=== PATIENT | female | born 1985 | race Caucasian/White ===

== ENCOUNTER 2017-05-16 22:53 | Emergency (ER) | payer BC ==
[~2017-05-16] VITALS: Ht 160 cm; Wt 86.4 kg
[~2017-05-16 22:53] MED LIST: MIRENA52 MG
[2017-05-16] MEDS ORDERED: NEXIUM20 MG PO (23:04)
[2017-05-16 23:36] VITALS: BP 102/77
== END 2017-05-16 23:36 | disposition home or self-care (01) ==
LOC: ED 22:53
DX: T16.2XXA Foreign body in left ear, initial encounter (principal); F17.200 Nicotine dependence, unspecified, uncomplicated; Z88.5 Allergy status to narcotic agent

== ENCOUNTER → 2019-08-15 | Outpatient (CLI) | payer OTHER ==
[~2019-08-15] MED LIST changes: +NEXIUM20 MG PO
== END ==
LOC: LAB 15:01
DX: R11.0 Nausea (principal); R05 Cough; R50.9 Fever, unspecified; Z20.828 Contact with and (suspected) exposure to other viral communicable diseases

== ENCOUNTER 2020-05-04 18:33 | Emergency (ER) | payer SELFPAY ==
[~2020-05-04 18:33] MED LIST changes: +HYDROCHLOROTHIA1 T14 PO; +NEURONTIN100 M1 PO; +VITAMIN D21250 MCG PO
[2020-05-04 19:34] LABS: HEMATOCRIT 43.8 % (37.0-47.0); HEMOGLOBIN 14.3 g/dL (12.5-16.0); MEAN CELL VOLUME 100 fl (78-100); MEAN CORPUSCULAR HEMOGLOBIN 33 pg (27-31); MEAN CORPUSCULAR HGB CONC 33 g/dL (33-37); MEAN PLATELET VOLUME 10.2 fl (7.4-10.4); PLATELET COUNT 215 K/mm3 (130-400); RED BLOOD COUNT 4.39 M/mm3 (4.10-5.30); RED CELL DISTRIBUTION WIDTH 14.3 % (11.5-14.5); WHITE BLOOD COUNT 8.6 K/mm3 (4.8-10.8)
[2020-05-04 19:35] LABS: BASO # 0.1 (0.02-0.10); LYMPH# 2.5 (1.50-4.00); MONO # 0.8 (0.20-0.80); NEU # 5.2 (1.40-6.50)
[2020-05-04 19:49] LABS: POTASSIUM 4.2 mmol/L (3.5-5.1)
[2020-05-04 19:50] LABS: CALCIUM 8.6 mg/dL (8.3-10.5)
[2020-05-04 19:53] LABS: TOTAL BILIRUBIN 0.6 mg/dL (0.2-1.2)
[2020-05-04 20:21] LABS: URINE APPEARANCE CLEAR; URINE BILIRUBIN NEGATIVE (NEGATIVE); URINE BLOOD TRACE (NEGATIVE); URINE COLOR YELLOW; URINE GLUCOSE NEGATIVE (NEGATIVE); URINE KETONE NEGATIVE (NEGATIVE); URINE LEUKOCYTE ESTERASE NEGATIVE (NEGATIVE); URINE NITRATE NEGATIVE (NEGATIVE); URINE PROTEIN(semi-quant) TRACE mg/dL (NEGATIVE); URINE UROBILINOGEN NORMAL (NORMAL); URINE WBC 0-1 /hpf (0-3)
[2020-05-04 21:27] VITALS: BP 103/70
== END 2020-05-04 21:27 | disposition home or self-care (01) ==
LOC: ED 18:33
PROVIDERS: Nurse Practitioner
DX: K59.00 Constipation, unspecified (principal); K21.9 Gastro-esophageal reflux disease without esophagitis; Z32.02 Encounter for pregnancy test, result negative; Z88.6 Allergy status to analgesic agent

== ENCOUNTER 2020-05-08 13:49 | Emergency (ER) | payer SELFPAY ==
[2020-05-08 14:26] LABS: HEMATOCRIT 44.6 % (37.0-47.0); HEMOGLOBIN 14.9 g/dL (12.5-16.0); MEAN CELL VOLUME 99 fl (78-100); MEAN CORPUSCULAR HEMOGLOBIN 33 pg (27-31); MEAN CORPUSCULAR HGB CONC 33 g/dL (33-37); MEAN PLATELET VOLUME 10.1 fl (7.4-10.4); PLATELET COUNT 215 K/mm3 (130-400); RED BLOOD COUNT 4.52 M/mm3 (4.10-5.30); RED CELL DISTRIBUTION WIDTH 14.6 % (11.5-14.5)
[2020-05-08 14:34] LABS: ALBUMIN 4.4 g/dL (3.5-5.0)
[2020-05-08 14:35] LABS: POTASSIUM 3.9 mmol/L (3.5-5.1)
[2020-05-08 14:36] LABS: CALCIUM 8.7 mg/dL (8.3-10.5)
[2020-05-08 14:37] LABS: TOTAL PROTEIN 7.4 g/dL (6.4-8.3)
[2020-05-08 14:39] LABS: TOTAL BILIRUBIN 0.8 mg/dL (0.2-1.2)
[2020-05-08 15:07] LABS: URINE APPEARANCE HAZY; URINE BILIRUBIN NEGATIVE (NEGATIVE); URINE BLOOD TRACE (NEGATIVE); URINE COLOR YELLOW; URINE GLUCOSE NEGATIVE (NEGATIVE); URINE KETONE 1+ (NEGATIVE); URINE LEUKOCYTE ESTERASE TRACE (NEGATIVE); URINE NITRATE NEGATIVE (NEGATIVE); URINE PROTEIN(semi-quant) TRACE mg/dL (NEGATIVE); URINE UROBILINOGEN NORMAL (NORMAL); URINE WBC 0-1 /hpf (0-3)
[2020-05-08 15:08] LABS: LYMPHOCYTE 22 % (20-51); MONOCYTE 13 % (3-10); NEUTROPHILS 65 % (42-75)
[2020-05-08] MEDS ORDERED: ZOFRAN4 M2 PO (16:57)
[2020-05-08 17:11] VITALS: BP 126/72
== END 2020-05-08 17:11 | disposition home or self-care (01) ==
LOC: ED 13:49
PROVIDERS: Nurse Practitioner
DX: K80.20 Calculus of gallbladder without cholecystitis without obstruction (principal); K76.0 Fatty (change of) liver, not elsewhere classified; F17.210 Nicotine dependence, cigarettes, uncomplicated; Z88.6 Allergy status to analgesic agent
CPT/HCPCS: J2405; J7030; Q9967

== ENCOUNTER 2020-05-11 11:18 | Emergency (ER) | payer SELFPAY ==
[~2020-05-11 11:18] MED LIST changes: +ZOFRAN4 M2 PO
[2020-05-11 12:08] LABS: EOS # 0.1 (0.04-0.40); EOS % 1.8 % (1.0-5.0); HEMATOCRIT 43.6 % (37.0-47.0); HEMOGLOBIN 14.2 g/dL (12.5-16.0); LYMPH# 2.3 (1.50-4.00); MEAN CELL VOLUME 102 fl (78-100); MEAN CORPUSCULAR HEMOGLOBIN 33 pg (27-31); MEAN CORPUSCULAR HGB CONC 33 g/dL (33-37); MEAN PLATELET VOLUME 10.3 fl (7.4-10.4); MONO # 0.5 (0.20-0.80); NEU # 2.6 (1.40-6.50); PLATELET COUNT 163 K/mm3 (130-400); RED BLOOD COUNT 4.27 M/mm3 (4.10-5.30); RED CELL DISTRIBUTION WIDTH 14.9 % (11.5-14.5); WHITE BLOOD COUNT 5.5 K/mm3 (4.8-10.8)
[2020-05-11 12:21] LABS: POTASSIUM 4.2 mmol/L (3.5-5.1)
[2020-05-11 12:22] LABS: CALCIUM 8.4 mg/dL (8.3-10.5)
[2020-05-11 12:23] LABS: TOTAL PROTEIN 6.8 g/dL (6.4-8.3)
[2020-05-11 12:25] LABS: TOTAL BILIRUBIN 0.5 mg/dL (0.2-1.2)
[2020-05-11] MEDS ORDERED: KETOROLAC10 MG PO (13:48)
[2020-05-11 14:00] VITALS: BP 108/69
== END 2020-05-11 14:00 | disposition home or self-care (01) ==
LOC: ED 11:18
PROVIDERS: Nurse Practitioner
DX: K80.20 Calculus of gallbladder without cholecystitis without obstruction (principal); R79.82 Elevated C-reactive protein (CRP); F17.210 Nicotine dependence, cigarettes, uncomplicated; Z88.6 Allergy status to analgesic agent
CPT/HCPCS: J1885

== ENCOUNTER → 2020-06-01 | Outpatient (CLI) | payer SELFPAY ==
[2020-05-11 14:00] VITALS: BP 108/69
[~2020-06-01] MED LIST changes: +AZITHROMYCIN 250MGPK PO; +DAILY VALUE1 EACH PO; +KETOROLAC10 MG PO; +MAGNESIUM100 M1; +MELOXICAM7.5 MG PO; +PREDNISONE20 M1 PO; +VITAMIN B122500 MC1
[2020-06-01 12:13] LABS: HEMATOCRIT 41.2 % (37.0-47.0); HEMOGLOBIN 13.6 g/dL (12.5-16.0); MEAN PLATELET VOLUME 10.1 fl (7.4-10.4); RED BLOOD COUNT 4.04 M/mm3 (4.10-5.30); RED CELL DISTRIBUTION WIDTH 15.4 % (11.5-14.5); WHITE BLOOD COUNT 6.4 K/mm3 (4.8-10.8)
[2020-06-01 12:16] LABS: POTASSIUM 4.3 mmol/L (3.5-5.1)
[2020-06-01 12:17] LABS: CALCIUM 8.5 mg/dL (8.3-10.5)
[2020-06-01 12:18] LABS: TOTAL PROTEIN 6.7 g/dL (6.4-8.3)
[2020-06-01 12:20] LABS: TOTAL BILIRUBIN 0.5 mg/dL (0.2-1.2)
== END ==
LOC: LAB 11:40
DX: R10.11 Right upper quadrant pain (principal); Z90.49 Acquired absence of other specified parts of digestive tract

== ENCOUNTER 2020-06-12 18:14 | Emergency (ER) | payer SELFPAY ==
[~2020-06-12 18:14] MED LIST changes: -AZITHROMYCIN 250MGPK PO; -DAILY VALUE1 EACH PO; -MAGNESIUM100 M1; -MELOXICAM7.5 MG PO; -PREDNISONE20 M1 PO; -VITAMIN B122500 MC1
[2020-06-12 19:05] LABS: EOS % 0.4 % (1.0-5.0); HEMATOCRIT 46.3 % (37.0-47.0); HEMOGLOBIN 15.4 g/dL (12.5-16.0); LYMPH# 1.8 (1.50-4.00); MEAN CELL VOLUME 102 fl (78-100); MEAN CORPUSCULAR HEMOGLOBIN 34 pg (27-31); MEAN CORPUSCULAR HGB CONC 33 g/dL (33-37); MEAN PLATELET VOLUME 10.5 fl (7.4-10.4); MONO # 0.5 (0.20-0.80); PLATELET COUNT 114 K/mm3 (130-400); RED BLOOD COUNT 4.56 M/mm3 (4.10-5.30); RED CELL DISTRIBUTION WIDTH 15.1 % (11.5-14.5); WHITE BLOOD COUNT 5.4 K/mm3 (4.8-10.8)
[2020-06-12 19:13] LABS: ALBUMIN 4.4 g/dL (3.5-5.0); POTASSIUM 4.1 mmol/L (3.5-5.1)
[2020-06-12 19:14] LABS: CALCIUM 8.8 mg/dL (8.3-10.5)
[2020-06-12 19:16] LABS: TOTAL PROTEIN 7.8 g/dL (6.4-8.3)
[2020-06-12 19:17] LABS: TOTAL BILIRUBIN 0.8 mg/dL (0.2-1.2)
[2020-06-12 19:52] LABS: PH-URINE 5.5 (5.0 - 8.0); URINE APPEARANCE HAZY; URINE BILIRUBIN NEGATIVE (NEGATIVE); URINE COLOR YELLOW; URINE GLUCOSE NEGATIVE (NEGATIVE); URINE KETONE TR (NEGATIVE); URINE PROTEIN(semi-quant) 2+ mg/dL (NEGATIVE)
[2020-06-12 19:53] LABS: URINE BLOOD 50 ery/uL (NEGATIVE); URINE LEUKOCYTE ESTERASE TRACE (NEGATIVE); URINE NITRATE NEGATIVE (NEGATIVE); URINE UROBILINOGEN 1 mg/dL (NORMAL)
[2020-06-12 20:42] LABS: LIPASE 133 U/L (8-78)
[2020-06-12 21:55] VITALS: BP 132/79
== END 2020-06-12 21:55 | disposition home or self-care (01) ==
LOC: ED 18:14
PROVIDERS: Family Medicine
DX: K29.20 Alcoholic gastritis without bleeding (principal); K76.0 Fatty (change of) liver, not elsewhere classified; Z90.49 Acquired absence of other specified parts of digestive tract

== ENCOUNTER → 2020-06-16 | Outpatient (CLI) | payer SELFPAY ==
[2020-06-12 21:55] VITALS: BP 132/79
[~2020-06-16] MED LIST changes: +AZITHROMYCIN 250MGPK PO; +DAILY VALUE1 EACH PO; +MAGNESIUM100 M1; +MELOXICAM7.5 MG PO; +PREDNISONE20 M1 PO; +VITAMIN B122500 MC1
== END ==
LOC: RAD 08:34
DX: K76.0 Fatty (change of) liver, not elsewhere classified (principal); N83.202 Unspecified ovarian cyst, left side; Z90.49 Acquired absence of other specified parts of digestive tract; Z96.89 Presence of other specified functional implants; Z97.5 Presence of (intrauterine) contraceptive device
CPT/HCPCS: Q9967

== ENCOUNTER → 2020-07-02 | Outpatient (CLI) | payer SELFPAY ==
[2020-06-12 21:55] VITALS: BP 132/79
[2020-07-02 13:26] LABS: HEMATOCRIT 45.3 % (37.0-47.0); HEMOGLOBIN 15.3 g/dL (12.5-16.0); MEAN PLATELET VOLUME 10.8 fl (7.4-10.4); RED BLOOD COUNT 4.5 M/mm3 (4.10-5.30); RED CELL DISTRIBUTION WIDTH 14.2 % (11.5-14.5); WHITE BLOOD COUNT 6.7 K/mm3 (4.8-10.8)
[2020-07-02 13:34] LABS: ALBUMIN 4.2 g/dL (3.5-5.0); POTASSIUM 3.7 mmol/L (3.5-5.1)
[2020-07-02 13:35] LABS: CALCIUM 8.6 mg/dL (8.3-10.5)
[2020-07-02 13:36] LABS: TOTAL PROTEIN 7.3 g/dL (6.4-8.3)
[2020-07-02 13:38] LABS: TOTAL BILIRUBIN 0.9 mg/dL (0.2-1.2)
== END ==
LOC: LAB 13:02
PROVIDERS: Nurse Practitioner
DX: R10.11 Right upper quadrant pain (principal); Z90.49 Acquired absence of other specified parts of digestive tract

== ENCOUNTER → 2020-07-10 | Outpatient (CLI) | payer SELFPAY ==
[2020-06-12 21:55] VITALS: BP 132/79
== END ==
LOC: RAD 16:06
DX: N83.02 Follicular cyst of left ovary (principal); M51.26 Other intervertebral disc displacement, lumbar region; R74.8 Abnormal levels of other serum enzymes; R79.82 Elevated C-reactive protein (CRP); Z90.49 Acquired absence of other specified parts of digestive tract; Z97.5 Presence of (intrauterine) contraceptive device
CPT/HCPCS: Q9967

== ENCOUNTER 2020-09-07 15:41 | Emergency (ER) | payer SELFPAY ==
[~2020-09-07 15:41] MED LIST changes: -AZITHROMYCIN 250MGPK PO; -DAILY VALUE1 EACH PO; -MAGNESIUM100 M1; -MELOXICAM7.5 MG PO; -PREDNISONE20 M1 PO; -VITAMIN B122500 MC1
[2020-09-07] MEDS ORDERED: MELOXICAM7.5 MG PO (15:54)
[2020-09-07] MEDS ORDERED: NEXIUM20 MG PO (15:55)
[2020-09-07] MEDS ORDERED: DAILY VALUE1 EACH PO (15:55)
[2020-09-07] MEDS ORDERED: VITAMIN B122500 MC1 (15:55)
[2020-09-07] MEDS ORDERED: MAGNESIUM100 M1 (15:56)
[2020-09-07 17:22] LABS: BASO # 0.06 (0.02-0.10); EOS # 0.05 (0.04-0.40); EOS % 0.9 % (1.0-5.0); HEMATOCRIT 43.9 % (37.0-47.0); HEMOGLOBIN 14.7 g/dL (12.5-16.0); LYMPH# 3.19 (1.50-4.00); MEAN CELL VOLUME 102 fl (78-100); MEAN CORPUSCULAR HEMOGLOBIN 34 pg (27-31); MEAN CORPUSCULAR HGB CONC 34 g/dL (33-37); MEAN PLATELET VOLUME 9.4 fl (7.4-10.4); MONO # 0.46 (0.20-0.80); NEU # 1.61 (1.40-6.50); PLATELET COUNT 297 K/mm3 (130-400); RED BLOOD COUNT 4.32 M/mm3 (4.10-5.30); RED CELL DISTRIBUTION WIDTH 12.7 % (11.5-14.5); WHITE BLOOD COUNT 5.4 K/mm3 (4.8-10.8)
[2020-09-07 17:34] LABS: ALBUMIN 3.7 g/dL (3.5-5.0)
[2020-09-07 17:35] LABS: POTASSIUM 3.6 mmol/L (3.5-5.1)
[2020-09-07 17:36] LABS: CALCIUM 8.4 mg/dL (8.3-10.5)
[2020-09-07 17:37] LABS: TOTAL PROTEIN 6.7 g/dL (6.4-8.3)
[2020-09-07 17:39] LABS: TOTAL BILIRUBIN 0.3 mg/dL (0.2-1.2)
[2020-09-07 17:44] LABS: PROTHROMBIN TIME 9.5 SECONDS (9.0-12.0)
[2020-09-07 17:51] LABS: URINE APPEARANCE HAZY; URINE COLOR YELLOW; URINE GLUCOSE NEGATIVE (NEGATIVE); URINE KETONE NEGATIVE (NEGATIVE); URINE PROTEIN(semi-quant) TRACE mg/dL (NEGATIVE)
[2020-09-07 17:52] LABS: URINE BILIRUBIN NEGATIVE (NEGATIVE); URINE BLOOD NEGATIVE (NEGATIVE); URINE LEUKOCYTE ESTERASE NEGATIVE (NEGATIVE); URINE NITRATE NEGATIVE (NEGATIVE); URINE UROBILINOGEN NORMAL (NORMAL); URINE WBC 0-1 /hpf (0-3)
[2020-09-07 18:12] LABS: D-DIMER 1.15 mg/L FEU (0.15-0.50)
[2020-09-07] MEDS ORDERED: AZITHROMYCIN 250MGPK PO (20:01)
[2020-09-07] MEDS ORDERED: PREDNISONE20 M1 PO (20:01)
[2020-09-07 20:17] VITALS: BP 112/81
== END 2020-09-07 20:19 | disposition home or self-care (01) ==
LOC: ED 15:41
PROVIDERS: Nurse Practitioner
DX: M94.0 Chondrocostal junction syndrome [Tietze] (principal); J18.9 Pneumonia, unspecified organism; K21.9 Gastro-esophageal reflux disease without esophagitis; F17.210 Nicotine dependence, cigarettes, uncomplicated; Z88.6 Allergy status to analgesic agent; Z20.822 Contact with and (suspected) exposure to COVID-19
CPT/HCPCS: J0696; J1885; Q9967

== ENCOUNTER 2021-07-12 08:11 | Emergency (ER) | payer OTHER ==
[~2021-07-12 08:11] MED LIST changes: +AZITHROMYCIN 250MGPK PO; +DAILY VALUE1 EACH PO; +MAGNESIUM100 M1; +MELOXICAM7.5 MG PO; +PREDNISONE20 M1 PO; +VITAMIN B122500 MC1
[2021-07-12 08:51] VITALS: BP 136/81
== END 2021-07-12 08:52 | disposition home or self-care (01) ==
LOC: ED 08:11
DX: T24.111A Burn of first degree of right thigh, initial encounter (principal); F17.200 Nicotine dependence, unspecified, uncomplicated; Z23 Encounter for immunization; Z28.311 Partially vaccinated for COVID-19; X10.1XXA Contact with hot food, initial encounter
CPT/HCPCS: 90715

== ENCOUNTER 2021-07-12 21:35 | Emergency (ER) | payer OTHER | END 2021-07-12 23:25 | LOC: ED 21:35 | DX: R69 Illness, unspecified (principal) ==